=== PATIENT | male | born 1990 | race African-American/Black ===

== ENCOUNTER 2019-03-16 16:41 | Emergency (ER) | payer MEDICAID ==
[~2019-03-16] VITALS: Ht 177.8 cm; Wt 80.0 kg
[2019-03-16] MEDS ORDERED: ACETAMINOPHEN 500MG TABLET PO ONE (17:15)
[2019-03-16 18:58] VITALS: BP 123/82
== END 2019-03-16 19:00 | disposition home or self-care (01) ==
LOC: ER 16:41
DX: S02.40CA Maxillary fracture, right side, initial encounter for closed fracture (principal); S02.81XA Fracture of other specified skull and facial bones, right side, initial encounter for closed fracture; S02.2XXA Fracture of nasal bones, initial encounter for closed fracture; J32.9 Chronic sinusitis, unspecified; F12.10 Cannabis abuse, uncomplicated; Y08.89XA Assault by other specified means, initial encounter; Y93.89 Activity, other specified; Y92.89 Other specified places as the place of occurrence of the external cause; Y99.8 Other external cause status
CPT/HCPCS: 70486; 99284

== ENCOUNTER 2021-10-13 00:12 | Emergency (ER) | payer SELFPAY ==
[~2021-10-13] VITALS: Ht 170.2 cm; Wt 82.0 kg
[2021-10-13] MEDS ORDERED: HYDROCODONE/ACETAMINOPHEN 5/325MG TABLET PO ONE (01:00)
[2021-10-13] MEDS ORDERED: TETRACAINE 0.5% OPHTH DROPS 4ML BOTHEYE ONE (01:00)
[2021-10-13 04:02] VITALS: BP 135/90
== END 2021-10-13 04:04 | disposition home or self-care (01) ==
LOC: ER 00:12
DX: R51.9 Headache, unspecified (principal); F12.10 Cannabis abuse, uncomplicated; Z86.59 Personal history of other mental and behavioral disorders
CPT/HCPCS: 70486; 99284

== ENCOUNTER 2022-07-26 20:43 | Emergency (ER) | payer MEDICAID, OTHER ==
[~2022-07-26] VITALS: Ht 180.3 cm; Wt 73.0 kg
[2022-07-26 20:46] VITALS: BP 145/100
[2022-07-26] MEDS ORDERED: LEVETIRACETAM 500MG/5ML CUP PO ONE (21:00)
== END 2022-07-26 21:27 | disposition home or self-care (01) ==
LOC: ER 21:00
DX: Z02.89 Encounter for other administrative examinations (principal); G40.909 Epilepsy, unspecified, not intractable, without status epilepticus; F12.10 Cannabis abuse, uncomplicated
CPT/HCPCS: 99283

== ENCOUNTER 2024-05-24 20:28 | Emergency (ER) | payer SELFPAY ==
[~2024-05-24] VITALS: Ht 172.7 cm; Wt 78.0 kg
[~2024-05-24 20:28] MED LIST: GABA-529 MT; NAPR-681 MT; TOPUD MT
[2024-05-24 20:36] VITALS: BP 131/90; PULSE 94; RESP 18; TEMP 98.2; O2SAT 99
[2024-05-24] MEDS: TETANUS, DIPHTHERIA, PERTUSSIS VAC/PF 0.5ML (>10YR OLD) IM ONE (20:45)
[2024-05-24] MEDS: LIDOCAINE HCL/PF 1% 10 MG/ML 5ML VIAL INFIL ONE (20:45)
[2024-05-24] MEDS: BACITRACIN ZINC OINT UDPKT TOP ONE (20:45)
[2024-05-24] MEDS ORDERED: CEPH500T MT (21:41)
== END 2024-05-24 22:00 | disposition home or self-care (01) ==
LOC: ER 20:28
DX: S61.217A Laceration without foreign body of left little finger without damage to nail, initial encounter (principal); S61.215A Laceration without foreign body of left ring finger without damage to nail, initial encounter; F12.10 Cannabis abuse, uncomplicated; R56.9 Unspecified convulsions; F19.10 Other psychoactive substance abuse, uncomplicated; Y08.89XA Assault by other specified means, initial encounter; Y93.89 Activity, other specified; Y92.89 Other specified places as the place of occurrence of the external cause; Y99.8 Other external cause status
CPT/HCPCS: 99283; 90715; 12004; 90471; J3490